=== PATIENT | male | born 1980 | race Caucasian/White ===

== ENCOUNTER 2022-06-11 09:38 | Outpatient (CLI) | payer OTHER, SELFPAY ==
[2022-06-11 23:20] LABS: SARS PCR* Negative SARS-CoV-2 (Negative)
== END 2022-06-11 09:39 | disposition home or self-care (01) ==
LOC: LONREF 09:38
PROVIDERS: PCP Family Medicine; Visit Provider Nurse Practitioner Family
DX: Z11.52 Encounter for screening for COVID-19 (principal)
CPT/HCPCS: 87635